=== PATIENT | male | born 2005 | race Caucasian/White ===

== ENCOUNTER 2024-05-10 06:19 | Emergency (ER) | payer OTHER ==
[~2024-05-10] VITALS: Ht 182.9 cm; Wt 63.5 kg
[~2024-05-10 06:19] MED LIST: ONDA4 PO
[2024-05-10] MEDS ORDERED: Chlorhexidine Mouth Care 15 ML UDC MT ONE (06:30)
[2024-05-10] MEDS ORDERED: Ibuprofen 400 MG Tab PO ONE (06:35)
[2024-05-10] MEDS ORDERED: PERIDEX15 ML MM (06:35)
[2024-05-10 07:10] VITALS: BP 119/84
== END 2024-05-10 07:07 | disposition home or self-care (01) ==
LOC: ER 06:19
DX: S01.511A Laceration without foreign body of lip, initial encounter (principal); S00.83XA Contusion of other part of head, initial encounter; Y04.8XXA Assault by other bodily force, initial encounter
CPT/HCPCS: 99282; A9270